=== PATIENT | female | born 1940 | race Caucasian/White ===

== ENCOUNTER 2016-06-24 13:55 | Emergency (ER) | payer MEDICARE, OTHER ==
--- NOTE | ~2016-06-24 | CR211 ---
[facility] A Service of [facility] RADIOLOGY TEXT RESULTS PATIENT: BLAINE COLVIN LOCATION: SED : 36 UNIT #: [id number] AGE: [address]: Carrington Booth MD SEX: F ORDER DR: [id number] [address] [address] [id number] E MR#: [id number] Acc #: [id number] NAME: BLAINE COLVIN. : 1940 SEX: F STUDY DATE/TIME: 06/24/2016 13:50 UNIT: SED ROOM: STUDY DESCRIPTION: CR Ribs Uni 2 View W PA Ch Rt Attending Physician: Carrington Booth M.D. Ordering Physician: Carrington Booth M.D. Primary Care Physician: Bolivar Shepherd M.D. MEDICAL IMAGING REPORT This report is preliminary unless electronic signature is present. EXAM Chest with right rib series 06/24/2016 1350 hours CLINICAL HISTORY 76-year-old woman who fell at home today. Trauma to the right chest, right lower rib pain. COMPARISON 10/20/2015 FINDINGS Upright chest demonstrates low lung volumes. There is stable cardiomegaly and tortuous aorta. The lungs are clear. There is no effusion or pneumothorax. AP and oblique views of the right ribs demonstrate a displaced posterolateral right 9th rib fracture which is acute. One of the oblique views suggest deformities of the anterior fifth and sixth rib fractures which could represent old healed fracture deformities as no definite cortical disruption is seen. A nondisplaced right tenth rib fracture may also be present. IMPRESSION There is a definite acute displaced posterolateral ninth rib fracture on the right with possible nondisplaced adjacent 10th rib fracture. One of the steep oblique views suggest bowing deformities of the anterior right fifth and sixth ribs which I would favor are related to old healed fracture deformities. There is no pleural effusion or pneumothorax seen. STAT * RESULT Dictated by... Shahnaz Nicolas M.D. [facility]. [facility] A Service of [facility] RADIOLOGY TEXT RESULTS PATIENT: BLAINE COLVIN [place] [facility] [place] 36 [place]IT #: [id number] AGE: [address]: Carrington Booth MD SEX: F ORDER DR: THIS IS AN ELECTRONICALLY VERIFIED REPORT Shahnaz Nicolas M.D. at 06/25/2016 9:34 AM BILL/ta TD: 06/24/2016 14:30 JOB #: [id number] MEDICAL IMAGING REPORT Page 1 of 1
[~2016-06-24 13:55] MED LIST: ACIPHEX20 MG PO; AMITIZA24 MCG PO; AMLODIPINE BESYL5 MG PO; BENADRYL ALLERG25 MG PO; CALCIUM + VITAM1 TAB PO; CALCIUM 600 + D1 TA1 PO; CALCIUM PO; CAPOTEN50 MG PO; CAPTOPRIL25 MG PO; CELEBREX PO; CELEXA20 MG PO; CENTRUM SILVER PO; CHOLECALCIFEROL PO; COLACE PO; DETROL LA PO; DICLOFENAC PO; DILAUDID2 MG PO; DOCUSATE SODIU100 MG PO; DULCOLAX5 MG PO; DULCOLAX5 MG PR; DURAGESIC25 MCG EXT; FENTANYL1 EAC3 TD; FLEXERIL10 MG PO; HCTZ PO; HYDROCHLOROTHIA25 MG PO; K-DUR20 ME1 PO; KLONOPIN0.5 MG PO; LODINE500 M1 PO; LOPRESSOR PO; MEGACE ORA40 MG/ML S PO; MEGACE ORA400 MG/10 PO; MELOXICAM15 MG PO; MIRALAX17 GM PO; MOBIC15 MG PO; MOVANTIK25 MG PO; NEURONTIN100 MG PO; NEXIUM PO; OXYCODON-ACETA1 EAC1 PO; OXYCODONE-APAP1 EAC5 PO; PERCOCET 5/321 UDTAB PO; PERCOCET10 PO; PLAVIX PO; PLENDIL PO; PRILOSEC40 MG PO; ST JOSEPH ASPIR81 M1 PO; SYNTHROID PO; TIZANIDINE HCL4 M1 PO; VICODIN 5/500 T1 TAB PO; VITAMIN D1000 UNI1 PO; ZOCOR PO; [UNRECOGNIZED DRUG - OTHER]
[2016-06-25 11:32] LABS: TMH HEPATITIS B SURFACE AG -JH Negative (Negative); TMH HEPATITIS C AB - JH Negative (Negative)
== END 2016-06-24 14:40 | disposition home or self-care (01) ==
LOC: SED 13:55
PROVIDERS: Emergency Medicine
DX: S22.41XA Multiple fractures of ribs, right side, initial encounter for closed fracture (principal); I25.10 Atherosclerotic heart disease of native coronary artery without angina pectoris; I10 Essential (primary) hypertension; W18.09XA Striking against other object with subsequent fall, initial encounter
CPT/HCPCS: 71101; 86803; 87340; 87806; 96372; 99283; J1170

== ENCOUNTER 2016-07-10 18:24 | Emergency (ER) | payer MEDICARE, OTHER ==
--- NOTE | ~2016-07-10 | CT4 ---
[facility] A Service of [facility] RADIOLOGY TEXT RESULTS PATIENT: BLAINE COLVIN LOCATION: [facility] [place] : 36 UNIT #: [id number] AGE: [address]: Shelly Shipman MD SEX: F ORDER DR: [id number] [address] [address] [id number] E MR#: [id number] Acc #: [id number] NAME: BLAINE COLVIN. : 1940 SEX: F STUDY DATE/TIME: 07/10/2016 19:20 UNIT: SED ROOM: STUDY DESCRIPTION: CT Abd and Pelv Wo Cont Attending Physician: Shelly Shipman M.D. Ordering Physician: Shelly Shipman M.D. Primary Care Physician: Bolivar Shepherd M.D. MEDICAL IMAGING REPORT This report is preliminary unless electronic signature is present. EXAM CT abdomen and pelvis without contrast HISTORY Abdominal and back pain abdomen feels like it is exploding history of chronic back pain, compression fractures multiple surgeries for hernia repairs. COMPARISON CT abdomen and pelvis 10/23/[address] exam was performed with one or more of the following radiation dose reduction techniques: automatic control, adjustment of mA and/or kV according to patient size, and iterative reconstruction. FINDINGS Axial images performed through the abdomen and pelvis without contrast. Please insert dose reduction technique line. ABDOMEN: Lung bases demonstrates emphysema and some basilar fibrosis. No effusions. Liver spleen unremarkable. Dense calcification seen lower pole right kidney which appear to be parenchymal. No hydronephrosis. Adrenal glands poorly visualized due to scoliosis and lack of fat. Extensive arterial and mesenteric vascular calcifications. GI tract demonstrates a moderate amount of colonic stool. Gallbladder unremarkable. PELVIS: Artifact noted from the patient's left hip arthroplasty. Probable old right parasymphyseal fracture with sclerosis. Old healed right inferior pubic ramus fractures. Advanced multilevel degenerative disc disease thoracic and lumbar spine with multiple lower thoracic compression fractures. Extensive facet arthropathy. [facility] A Service of [facility] RADIOLOGY TEXT RESULTS PATIENT: BLAINE COLVIN LOCATION: [facility] [place] : 36 UNIT #: [id number] AGE: [address]: Shelly Shipman MD SEX: F ORDER DR: IMPRESSION 1. No definite acute intraabdominal or intrapelvic pathology. Patient demonstrates a moderate amount of colonic stool. Gas and fluid nonspecific. 2. Advanced multilevel degenerative disc disease thoracic and lumbar spine with severe scoliosis and multiple compression fractures most pronounced at T10 I suspect these are chronic in nature. 3. Old right symphyseal and inferior pubic ramus fractures. 4. Patient is status post left hip arthroplasty. I suspect this may be a revision arthroplasty component. Dictated by... Jenifer Wiggins M.D. THIS IS AN ELECTRONICALLY VERIFIED REPORT Jenifer Wiggins M.D. at 07/13/2016 6:07 AM NANCY/david TD: 07/10/2016 23:46 JOB #: [id number] MEDICAL IMAGING REPORT Page 1 of 1
[2016-07-10 18:54] LABS: URINE SOURCE CLEAN CATCH
[2016-07-10 18:56] LABS: URINE APPEARANCE CLEAR; URINE BILIRUBIN NEG (NEG); URINE BLOOD NEG (NEG); URINE COLOR YELLOW; URINE GLUCOSE NEG (NORM); URINE KETONE NEG (NEG); URINE LEUKOCYTE ESTERASE 1+ (NEG); URINE NITRATE NEG (NEG); URINE PROTEIN NEG (NEG)
[2016-07-10 19:02] LABS: MICRO INDICATED? YES; URINE RBC 0-2 /[HPF] (0-2)
[2016-07-10 19:03] LABS: CULTURE INDICATED? YES; URINE BACTERIA NEG (NEG); URINE SQUAMOUS EPITHELIAL CELL OCCAS /[HPF]; URINE TRANSITIONAL EPI CELLS FEW /[HPF]
[2016-07-10 19:55] LABS: BASOPHIL% 0.7 % (0-2.5); EOSINOPHIL# 0.1 X10e3 (0-0.7); EOSINOPHIL% 2.2 % (0.0-7.0); HEMATOCRIT 36.7 % (35.0-45.0); LYMPHOCYTE# 1.1 X10e3 (1.0-3.5); LYMPHOCYTE% 17.2 % (17.0-45.0); MEAN CELL VOLUME 104.6 FL (83-96); MEAN CORPUSCULAR HEMOGLOBIN 36.9 PG (28-34); MEAN CORPUSCULAR HGB CONC 35.3 g/dL (30-36); MEAN PLATELET VOLUME 8.5 FL (6.5-11.5); MONOCYTE# 0.6 X10e3 (0-1.0); MONOCYTE% 9.6 % (3.0-12.0); NEUTROPHIL# 4.6 X10e3 (1.5-7.1); NEUTROPHIL% 70.3 % (40-75); PLATELET COUNT 213 X10e3 (140-420); RED BLOOD COUNT 3.51 X10e (3.90-5.30); WHITE BLOOD COUNT 6.6 X10e3 (4.0-10.5)
[2016-07-10 19:58] LABS: DIFF IND NO
[2016-07-10 20:15] LABS: ALBUMIN SERUM 4.2 g/dL (3.5-5.0); BILIRUBIN, DIRECT 0.1 mg/dL (0.0-0.2); BILIRUBIN,INDIRECT 0.4 mg/dL (0.0-0.9); BILIRUBIN,TOTAL 0.5 mg/dL (0.2-2.0); CALCIUM SERUM 9.3 mg/dL (8.4-10.2); CREATININE SERUM 0.8 mg/dL (0.6-1.4); GLOM FILT RATE Estimated 70.7 mL/min (>60); POTASSIUM 3.7 mmol/L (3.5-5.1); PROTEIN TOTAL SERUM 6.8 g/dL (6.0-8.3)
== END 2016-07-10 21:52 | disposition home or self-care (01) ==
LOC: SED 18:24
PROVIDERS: Emergency Medicine; Student in an Organized Health Care Education/Training Program
DX: K59.00 Constipation, unspecified (principal); R10.84 Generalized abdominal pain; I25.10 Atherosclerotic heart disease of native coronary artery without angina pectoris; I10 Essential (primary) hypertension; Z91.030 Bee allergy status; Z79.899 Other long term (current) drug therapy
CPT/HCPCS: 36415; 74176; 80048; 80076; 81003; 83690; 85025; 87086; 96374; 96375; 99284; J2270; J2405